=== PATIENT | male | born 1965 | race Caucasian/White ===

== ENCOUNTER 2018-05-25 09:10 | Emergency (ER) | payer MEDICARE, OTHER ==
[2018-05-25] MEDS: PERCOCET 5MG/325MG TAB PO ×3 (09:34)
== END 2018-05-25 10:27 | disposition home or self-care (01) ==
LOC: M ED 09:10
DX: M25.561 Pain in right knee (principal); X58.XXXA Exposure to other specified factors, initial encounter; Y92.099 Unspecified place in other non-institutional residence as the place of occurrence of the external cause; Y93.89 Activity, other specified; Y99.9 Unspecified external cause status; E78.5 Hyperlipidemia, unspecified; F43.10 Post-traumatic stress disorder, unspecified; G47.30 Sleep apnea, unspecified; Z87.820 Personal history of traumatic brain injury
CPT/HCPCS: 73564